=== PATIENT | male | born 1990 ===

== ENCOUNTER 2016-08-02 07:18 | Observation (INO) | payer SELFPAY ==
[2016-08-02] MEDS ORDERED: Sodium Chloride 0.9% 1,000 ML IV STA (08:31)
--- NOTE | 2016-08-02 08:45 | ED PDOC ---
Arrival/HPI - General Historian: Patient - History of Present Illness Time/Duration: < week Symptom Onset: Gradual Symptom Course: Unchanged, Intermittent Quality: Aching, Stabbing, Burning Severity Level: 7 Activities at Onset: Sleeping - General Chief Complaint: Abdominal Pain Time Seen by Provider: 08/02/16 07:26 - History of Present Illness Narrative History of Present Illness (Text): 08/02/16 08:32 26 yo M w h/o morbid obesity on no home meds presents to ED with complaints of 7 /10 aching, occasionally sharp epigastric abdominal pain x 1 week. Patient states he started experiencing sharp epigastric abdominal pain radiating to LUQ approximately one week ago that woke him up from sleep. Movement, bending over, laying flat, and fatty meals exacerbate the pain. Patient tried Advil for pain management with moderate improvement in his symptoms. Patient denies chronic use of NSAIDs, chronic or binge EtOH use, h/o gallstones. Admits to postprandial pain, mild nausea, otherwise no vomiting, diarrhea, or constipation. Patient denies fevers, chills, rashes, edema, dizziness. Admits to L-sided CP x 2 days, mild SOB and mild L-sided, sharp CP with deep inhalation. (Mehreen Espinosa) Past Medical History - Provider Review Nursing Documentation Reviewed: Yes - Travel History Have you recently traveled outside [place] w/in the past 3 mons?: No - Infectious Disease Hx of Infectious Diseases: None - Psychiatric Hx Substance Use: No Family/Social History - Physician Review Nursing Documentation Reviewed: Yes Family/Social History: CAD/GA Smoking Status: Never Smoked Hx Alcohol Use: No Frequency of alcohol use: Socially Hx Substance Use: No Allergies/Home Meds Allergies/Adverse Reactions: Allergies SHELLFISH Allergy (Uncoded 08/02/16 07:45) SHORTNESS OF BREATH CLOSE THROAT /HIVES Home Medications: Home Meds Medication Instructions Recorded Confirmed No Known Home Med 08/02/16 08/02/16 Review of Systems - Review of Systems Constitutional: Normal. absent: Fatigue, Weight Change Eyes: Normal ENT: Normal Respiratory: SOB (mild). absent: Cough, Sputum Cardiovascular: Chest Pain (3/10 L-sided intermittent stabbing CP). absent: Palpitations, Calf Pain, CHAIDEZ Gastrointestinal: Abdominal Pain (epigastric radiating to LUQ), Nausea (mild). absent: Stool Changes, Constipation, Diarrhea, Vomiting, Hematochezia, Hematemesis Genitourinary Male: absent: Dysuria Musculoskeletal: absent: Neck Pain Skin: absent: Skin Lesions Neurological: absent: Headache, Dizziness, Focal Weakness Endocrine: absent: Diaphoresis Physical Exam Temperature: Afebrile Blood Pressure: Normal Pulse: Tachycardic Respiratory Rate: Normal Appearance: Positive for: Well-Appearing, Non-Toxic, Comfortable Pain Distress: None Mental Status: Positive for: Alert and Oriented X 3 - Systems Exam Head: Present: Atraumatic, Normocephalic Pupils: Present: PERRL. No: Sluggish Extroacular Muscles: Present: EOMI Conjunctiva: Present: Normal. No: Injected, Icteric Mouth: Present: Moist Mucous Membranes Nose (Internal): Present: Normal Inspection Neck: Present: Normal Range of Motion. No: Meningeal Signs, JVD Respiratory/Chest: Present: Clear to Auscultation. No: Respiratory Distress, Accessory Muscle Use Cardiovascular: Present: Normal S1, S2, Tachycardic (90s). No: Murmurs Abdomen: Present: Tenderness (epigastric TTP), Normal Bowel Sounds. No: Distention (obese), Peritoneal Signs, Rebound, Guarding, McBurney's Point Tender Back: Present: Normal Inspection. No: CVA Tenderness, Midline Tenderness, Paraspinal Tenderness Upper Extremity: Present: Normal Inspection, NORMAL PULSES, Capillary Refill < 2s. No: Cyanosis, Edema Lower Extremity: Present: Normal Inspection, NORMAL PULSES, Capillary Refill < 2 s. No: Edema, CALF TENDERNESS, Cyanosis, All's Sign, Tenderness Neurological: Present: GCS=15, CN II-XII Intact, Speech Normal Skin: Present: Warm, Dry, Normal Color. No: Rashes Psychiatric: Present: Alert, Oriented x 3, Normal Insight, Normal Concentration Vital Signs Temp Pulse Resp BP Pulse Ox 08/02/16 09:55 67 18 121/54 L 97 08/02/16 07:40 97.8 F 98 H 18 132/81 98 08/02/16 07:20 97.8 F 98 H 18 132/81 98 Medical Decision Making Re-evaluation Time: 11:32 Reassessment Condition: Re-examined, Improved - Lab Interpretations I have reviewed the lab results: Yes Interpretation: All labs normal - RAD Interpretation Ruffler: Radiologist - EKG Interpretation Interpreted by ED Physician: Yes Type: 12 lead EKG Comparison: No previous EKG avail. ED Course and Treatment: Patient seen and examined with resident Came up with treatment and disposition plan with resident A 26 year old male with left upper abdominal pain. Patient notes left sided chest pain. pt's HEART score low. 2 sets of cardiac enzymes and an EKG ordered I had a long discussion with patient that our initial evaluation has not shown evidence of a heart attack. Patient verbalized understanding that even if these tests are normal, symptoms may still be a warning sign of a future heart attack and it is very important for patient to arrange outpatient cardiology follow up Patient was agreeable to observation in the emergency room, and understood that this will prolong the length of stay Observation and further evaluation was offered as inpatient, but patient asked to be discharged home with outpatient follow up instead. pt with no cardiac risk factors, reproducible chest pain, currently denies cp and in no distress PERC negative and WELLS low for PE EKG 76 beats per minute, normal sinus. No ST-segment elevations or depressions , no T-wave inversions, normal intervals. Had a long and extensive d/w patient about f/u with a boat cleaner for further workup and testing as well as a primary physician. Explained to patient that although his ER w/u did not show any acute abnormalities, patient still needs further testing which may include an echo, stress test, cardiac cath, or others. Pt states he understands to return to the ER right away for new or worsening symptoms or for inability to f/u with PMD or specialist as instructed. Patient states that he fully agrees with and understands discharge instructions. States that he agrees with the plan and disposition. Verbalized and repeated discharge instructions and plan. I have given the patient opportunity to ask any additional questions. (Justin Archibald) 08/02/16 09:02 26yo M w no sig medical history aside from morbid obesity presented with sharp, aching epigastric abd pain x 1 week and L CP. Labs, CXR EKG sent. Pulmonary embolism considered, patient is Wells score low-risk for PE, PERC score 0 (<2% chance of PE). Toradol, Zofran, NS bolus. 08/02/16 11:32 Patient re-examined. Significant improvement in abdominal pain, states he was able to sleep. Patient requests water, admits to mild epigastric burning with water ingestion. IV protonix given. HEART score = 1 (0.9-1.7% 6-week risk of major adverse cardiac event). 08/02/16 12:03 Upon re-evaluation patient states he feels much better, denies any epigastric abd pain, able to tolerate fluids without nausea, abd pain. 08/02/16 13:10 Patient re-evaluated. Abd pain resolved. Denies CP, SOB, abd pain, n/v, fevers, chills, headache, dizziness. Lab and x-ray results discussed. All questions answered. Patient agreeable to DC home with pepcid, PMD followup, dietary change. (Mehreen Espinosa) - RAD Interpretation Narrative RAD Interpretations (Text): 08/02/16 10:17 CXR - no active disease (Mehreen Espinosa) - EKG Interpretation EKG Interpretation (Text): 08/02/16 09:49 NSR 76bmp, No ST-T wave changes. Normal EKG. (Mehreen Espinosa) - Medication Orders Current Medication Orders: Discontinued Medications Sodium Chloride (Sodium Chloride 0.9%) 1,000 mls @ 999 mls/hr IV .Q1H1M STA Stop: 08/02/16 09:31 Last Admin: 08/02/16 08:57 Dose: 999 MLS/HR eMAR Start Stop Document 08/02/16 08:57 SRE (Rec: 08/02/16 08:57 SRE [id number]) Intravenous Solution Start Date 08/02/16 Start Time 08:50 End Date 08/02/16 End time 09:50 Total Infusion Time 60 Ketorolac Tromethamine (Toradol) 15 mg IVP STAT STA Stop: 08/02/16 08:32 Last Admin: 08/02/16 08:57 Dose: 15 MG IVP Administration Document 08/02/16 08:57 SRE (Rec: 08/02/16 08:57 SRE [id number]) Charges for Administration # of IVP Administrations 1 Ondansetron HCl (Zofran Inj) 4 mg IVP ONCE ONE Stop: 08/02/16 08:31 Last Admin: 08/02/16 08:56 Dose: 4 MG IVP Administration Document 08/02/16 08:56 SRE (Rec: 08/02/16 08:57 SRE [id number]) Charges for Administration # of IVP Administrations 1 Pantoprazole Sodium (Protonix Inj) 40 mg IVP STAT STA Stop: 08/02/16 11:32 Last Admin: 08/02/16 11:57 Dose: 40 MG IVP Administration Document 08/02/16 11:57 SRE (Rec: 08/02/16 11:57 SRE [id number]) Charges for Administration # of IVP Administrations 1 Disposition/Present on Arrival - Present on Arrival Any Indicators Present on Arrival: No History of DVT/PE: No History of Uncontrolled Diabetes: No Urinary Catheter: No History of Decub. Ulcer: No History Surgical Site Infection Following: None - Disposition Have Diagnosis and Disposition been Completed?: Yes Disposition Time: 07:35 - Disposition Diagnosis: GERD (gastroesophageal reflux disease), Hyperlipidemia, Chest pain Patient Problems: Current Active Problems Problem Status Diagnosed GERD (gastroesophageal reflux disease) Acute Hyperlipidemia Acute Non-cardiac chest pain Acute Condition: STABLE
[2016-08-02 09:02] LABS: ADD MANUAL DIFF? NO
[2016-08-02 09:05] LABS: BASO # 0.02 K/mm3 (0.0-2.0); BASO % 0.2 % (0.0-3.0); EOS # 0.2 (0.0-0.7); EOS % 1.9 % (1.5-5.0); GRAN # 7.12 (1.4-6.5); GRAN % 64.2 % (50.0-68.0); HEMATOCRIT 40.7 % (42.0-52.0); LYMPH # 3.1 (1.2-3.4); LYMPH % 27.7 % (22.0-35.0); MEAN CELL VOLUME 80.8 fL (80.0-105.0); MEAN CORPUSCULAR HEMOGLOBIN 27.8 pg (25.0-35.0); MEAN CORPUSCULAR HGB CONC 34.4 g/dl (31.0-37.0); MEAN PLATELET VOLUME 9.5 fl (7.0-11.0); MONO # 0.7 (0.1-0.6); PLATELET COUNT 314 10^3/uL (120.0-450.0); WHITE BLOOD COUNT 11.1 10^3/ul (4.5-11.0)
[2016-08-02 09:17] LABS: ALB/GLOB RATIO 0.9 (1.1-1.8); ALKALINE PHOSPHATASE 92 U/L (38-133); ALT/SGPT 42 U/L (7-56); AST/SGOT 27 U/L (15-59); BILIRUBIN,TOTAL 0.6 mg/dL (0.2-1.3); BLOOD UREA NITROGEN 14 mg/dL (7-21); CALCIUM 9.4 mg/dL (8.4-10.5); CARBON DIOXIDE 30 mmol/L (21-33); CHLORIDE 102 mmol/L (98-107); CHOLESTEROL 164 mg/dL (130-200); GFR AFRICAN-AMERICAN > 60; GLUCOSE,RANDOM 109 mg/dL (70-110); LIPASE 55 U/L (23-300); POTASSIUM 4.2 mmol/L (3.6-5.0); SODIUM 141 mmol/L (132-148); TOTAL PROTEIN 8.1 g/dL (5.8-8.3)
--- NOTE | 2016-08-02 09:23 | RAD ---
HISTORY: CP COMPARISON: No prior. TECHNIQUE: Chest PA and lateral FINDINGS: LUNGS: No active pulmonary disease. PLEURA: No significant pleural effusion identified. No pneumothorax apparent. CARDIOVASCULAR: Normal. OSSEOUS STRUCTURES: No significant abnormalities. VISUALIZED UPPER ABDOMEN: Normal. OTHER FINDINGS: None. IMPRESSION: No active disease.
[2016-08-02 09:31] LABS: TROPONIN I 0.02 ng/mL
[2016-08-02 13:55] VITALS: BP 119/79; PULSE 74; RESP 16; TEMP 98; O2SAT 98
--- NOTE | 2016-08-03 10:54 | CARD ---
APPROVED REPORT EKG Measurement Heart [id number] <Conclusion> Sinus rhythm Normal ECG
== END 2016-08-03 08:07 | disposition home or self-care (01) ==
LOC: ED 07:18 → EROBSV 08:27
PROVIDERS: ADMIT Emergency Medicine; ATTEND Emergency Medicine
DX: K21.9 Gastro-esophageal reflux disease without esophagitis (principal); R07.9 Chest pain, unspecified; E78.5 Hyperlipidemia, unspecified
CPT/HCPCS: 36415; 71020; 80053; 80061; 83690; 84484; 85025; 93005; 96361; 96374; 96375; 99283; C9113; G0378; J1885; J2405; J7040